=== PATIENT | female | born 1955 | race Caucasian/White ===

== ENCOUNTER 2016-08-06 06:51 | Emergency (ER) | payer BC ==
[2016-08-06 07:21] VITALS: BP 130/77
[2016-08-06] MEDS ORDERED: Morphine 10 MG/ML Syringe IM ONE (07:49)
--- NOTE | 2016-08-06 08:00 | EDM.PDOC ---
ED HPI Trauma - General Chief Complaint: Lower Extremity Injury/Pain Stated Complaint: FALL Time Seen by Provider: 08/06/16 07:06 Source: Reports: Patient History Limitations: Reports: No limitations - History of Present Illness INITIAL COMMENTS - FREE TEXT/NARRATIVE: Patient arrives with severe right lower extremity pain, rated 8.5/10. 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 States swelling and pain and cannot bear weight on her leg. She denies LOC, did not hit her head. She does say that due to her pain she had a near syncopal event but that she suffers these anytime she has severe pain. No SOB, no chest pain, denies pain anywhere else. Describes some radiation of her pain down the right leg and into her foot. She also states she feels some numbness as well. Difficult to straighten leg, it is slightly internally rotated. Symptom Onset Date: 08/06/16 Symptom Onset Time: 06:40 Occurred When: just prior to arrival Occurred Where: home Method of Injury: fall Severity: moderate Pain/Injury Location: Reports: lower extremity, right Consciousness: Reports: no loss of consciousness Associated Symptoms: Reports: no other symptoms Allergies/ADRs: Allergies Sulfa (Sulfonamide Antibiotics) Allergy (Verified 06/07/14 13:32) Edema Home Medications: Ambulatory Orders Cholecalciferol (Vitamin D3) [Vitamin D3] 1 tab PO DAILY 06/07/14 [Confirmed ] Cranberry Fruit Concentrate [Cranberry] 2 tab PO DAILY 06/07/14 [Confirmed 06/28] Docusate Sodium [Colace] 1 tab PO ACBED PRN 06/07/14 [Confirmed 06/28/14] Lutein/Min/Vit C/Vit E Acetate [Ocuvite Lutein] 1 tab PO DAILY 06/07/14 [ Confirmed 06/28/14] Naproxen Sodium [Aleve] 2 tab PO DAILY 06/07/14 [Confirmed 06/28/14] SUMAtriptan Succinate [Imitrex] 1 tab PO PRN 06/07/14 [Confirmed 06/28/14] Temazepam [Restoril] 1 - 2 tab PO PRN 06/07/14 [Confirmed 06/28/14] Thyroid [[place] Thyroid] 1.5 tab PO DAILY 06/07/14 [Confirmed 06/28/14] Topiramate [Topamax] 1 tab PO BID 06/07/14 [Confirmed 06/28/14] Social & Family History - Tobacco Use Smoking Status *Q: Former Smoker - Caffeine Use Caffeine Use: Reports: Coffee - Alcohol Use Days Per Week of Alcohol Use: 0 - Recreational Drug Use Recreational Drug Use: No Review of Systems - Review of Systems Review Of Systems: ROS reveals no pertinent complaints other than HPI. Trauma Exam - Physical Exam Exam: See Below Exam Limited By: No limitations General Appearance: Reports: alert, mild distress Head: Reports: atraumatic, normocephalic Eyes: bilateral eye: EOMI, PERRL Ears: Reports: normal TMs Throat/Mouth: Reports: Normal inspection Neck: Reports: non-tender, full range of motion Respiratory Exam: Reports: no respiratory distress, lungs clear, normal breath sounds, no accessory muscle use, chest non-tender Cardiovascular: Reports: normal peripheral pulses, regular rate, rhythm, no edema GI/Abdominal: Reports: normal bowel sounds, soft, non tender Extremities: Reports: pain with movement, tenderness, unable to bear weight ( right lower leg has joint effusion at the knee. Severe pain with movement. Physical exam refused by patient due to pain levels. Has been medicated). Denies: normal range of motion Neurologic: Reports: certified scrum master II-XII nml as tested, no motor/sensory deficits, alert , normal mood/affect, oriented x 3 Skin: Reports: Normal color, Warm/dry - Mitul Coma Score Best Eye Response (Mitul): (4) open spontaneously Best Verbal Response (Mitul): (5) oriented Best Motor Response (Mitul): (6) obeys commands Course - Vital Signs Last Recorded V/S: Last Vital Signs Temp 37.1 C 08/06/16 07:20 Pulse 85 08/06/16 07:20 Resp 18 08/06/16 07:20 BP 130/77 08/06/16 07:20 Pulse Ox 99 08/06/16 07:20 - Orders/Labs/Meds Orders: Active Orders 24 hr Category Date Time Status Knee 3V Rt [CR] Stat Exams 08/06/16 06:57 Taken Knee wo Cont Rt [CT] Stat Exams 08/06/16 07:47 Ordered Tibia Fibula Rt [CR] Stat Exams 01/02/17 06:57 Taken Meds: Medications Discontinued Medications Generic Name Dose Route Start Last Admin Trade Name Ekta PRN Reason Stop Dose Admin Morphine Sulfate 4 mg 08/06/16 07:49 08/06/16 08:07 Morphine IM 08/06/16 07:50 4 mg ONETIME ONE Administration Morphine Sulfate 4 mg 08/06/16 09:54 08/06/16 10:14 Morphine IM 08/06/16 09:55 4 mg ONETIME ONE Administration - Radiology Interpretation Free Text/Narrative:: Review of radiology results with Dr. Terrazas radiology, as well as the orthopedic risk control analyst surgeon Dr. Killian. Lateral tibial plateau fracture. Departure - Departure Time of Disposition: 10:38 Disposition: Home, Self-Care 01 Condition: good Clinical Impression: Tibial plateau fracture, right Qualifiers: Encounter type: initial encounter Fracture type: closed Qualified Code(s): S82.141A - Displaced bicondylar fracture of right tibia, initial encounter for closed fracture Instructions: Pain Medicine Instructions, [id number], Knee Immobilizer, Easy- to-Read, Tibial Fracture, Adult, [id number] Referrals: Radha Kumar, DO [Primary Care Provider] - Forms: ED Department Discharge Additional Instructions: I did visit with Dr. Killian, the [place] orthopedic risk control analyst physician. You have a LATERAL TIBIAL PLATEAU FRACTURE He recommended seeing Dr. Eddie Adhikari who specializes in fixing these type of fractures He said that you could call to schedule follow up with Dr. Adhikari at the Orthopedic clinic in [place], [place], if your pain is not well controlled or you want surgery sooner you can come to the [facility] Emergency Department tomorrow and he will see you. If you don't eat or drink anything after midnight tonight he may be able to perform surgery right away tomorrow. [place] reads all of our x-rays and CT scans, so they will have these in the system I have included information for you to read. You need to stay in the knee immobilizer as much as possible and you can't put weight on the leg. Use crutches to get around. Take your pain medications every 4 hours. If you do not do this, you may start having too much pain for the medications to help. Drink plenty of water, and take a stool softener if needed as these medications can cause constipation. Make sure to take with food as they can cause nausea if taken without food. Please call us with any additional questions or concerns. - Problem List & Annotations (1) Tibial plateau fracture, right SNOMED Code(s): 556584747 Code(s): S82.141A - DISPLACED BICONDYLAR FRACTURE OF RIGHT TIBIA, INIT Status: Acute Priority: Medium Qualifiers: Encounter type: initial encounter Fracture type: closed Qualified Code(s) : S82.141A - Displaced bicondylar fracture of right tibia, initial encounter for closed fracture - My Orders Last 24 Hours: My Active Orders 08/06/16 07:47 Knee wo Cont Rt [CT] Stat - Assessment/Plan Last 24 Hours: My Active Orders 08/06/16 07:47 Knee wo Cont Rt [CT] Stat Assessment:: Right lateral tibial plateau fracture Plan: I did visit with Dr. Killian, the [place] orthopedic risk control analyst physician. You have a LATERAL TIBIAL PLATEAU FRACTURE He recommended seeing Dr. Eddie Adhikari who specializes in fixing these type of fractures He said that you could call to schedule follow up with Dr. Adhikari at the Orthopedic clinic in [place], [place], if your pain is not well controlled or you want surgery sooner you can come to the [facility] Emergency Department tomorrow and he will see you. If you don't eat or drink anything after midnight tonight he may be able to perform surgery right away tomorrow. [place] reads all of our x-rays and CT scans, so they will have these in the system I have included information for you to read. You need to stay in the knee immobilizer as much as possible and you can't put weight on the leg. Use crutches to get around. Take your pain medications every 4 hours. If you do not do this, you may start having too much pain for the medications to help. Drink plenty of water, and take a stool softener if needed as these medications can cause constipation. Make sure to take with food as they can cause nausea if taken without food. Please call us with any additional questions or concerns.
[2016-08-06] MEDS ORDERED: Morphine 4 MG/ML Syringe IM ONE (09:54)
== END 2016-08-06 10:38 | disposition home or self-care (01) ==
LOC: SUPCPDRO 06:51 → VM.ED 06:51
DX: S82.141A Displaced bicondylar fracture of right tibia, initial encounter for closed fracture (principal); Z79.899 Other long term (current) drug therapy; Z87.891 Personal history of nicotine dependence; W18.39XA Other fall on same level, initial encounter; Y93.89 Activity, other specified; Y92.009 Unspecified place in unspecified non-institutional (private) residence as the place of occurrence of the external cause; Z88.2 Allergy status to sulfonamides
CPT/HCPCS: 73562; 73590; 73700; 96372; 99284; J2270